=== PATIENT | male | born 1970 | race Caucasian/White ===

== ENCOUNTER → 2019-11-14 | Outpatient (CLI) | payer OTHER | LOC: COL.RAD 09:21 | DX: M48.07 Spinal stenosis, lumbosacral region (principal); M51.26 Other intervertebral disc displacement, lumbar region; Z98.1 Arthrodesis status ==

== ENCOUNTER → 2019-12-05 | Outpatient (CLI) | payer OTHER | LOC: MHCPAIN 13:40 | DX: M47.817 Spondylosis without myelopathy or radiculopathy, lumbosacral region (principal); M54.5 Low back pain; M53.3 Sacrococcygeal disorders, not elsewhere classified; G89.29 Other chronic pain; M96.1 Postlaminectomy syndrome, not elsewhere classified | CPT/HCPCS: G0463 ==

== ENCOUNTER 2020-07-22 12:20 | Day surgery (SDC) | payer OTHER ==
[~2020-07-22] VITALS: Ht 185.4 cm; Wt 100.6 kg
[2020-07-22 13:33] VITALS: BP 132/77; PULSE 65; TEMP 98.7
[2020-07-22] MEDS ORDERED: PERCOCET 325 MG1 TA2 PO (13:37)
[2020-07-22] MEDS ORDERED: NORCO 325 MG-51 TAB PO (13:37)
[2020-07-22] MEDS ORDERED: NAPROSYN500 MG PO (13:37)
--- NOTE | 2020-07-22 14:16 | NUR ---
Pt taken via cart to OR for scheduled surgery by ROBIN Cervantes.
[2020-07-22 15:30] VITALS: BP 130/76; PULSE 71; TEMP 97.5
--- NOTE | 2020-07-22 15:30 | NUR ---
Pt returned via cart to bay 1. Pt sitting up in bed. Already voided in urinal and had water whiel in PACU. Reports minimal pain and denied need for intervention. Pt SBA to bathroom upon return to pts room. Pt able to void and denied complaints. Given jello per request. Side rails up and patient watching TV with vitals monitor to obtain VS [id number].
[2020-07-22 15:45] VITALS: BP 136/86; PULSE 62
[2020-07-22 15:53] VITALS: TEMP 97.4
[2020-07-22 16:00] VITALS: BP 137/90; PULSE 68
[2020-07-22 16:15] VITALS: BP 139/79; PULSE 77
--- NOTE | 2020-07-22 16:21 | NUR ---
Pt tolerated water and jello. Denies pain or nausea. VS remain stable- see flowsheet. Pts IV removed, catheter tip intact and pressure dressing applied. Pt verbalized understanding of discharge teaching, packet reviewed with patient. Pt dressing into personal clothes and will be taken via wheelchair to private vehicle.
--- NOTE | 2020-07-22 16:33 | NUR ---
Pt taken via wheelchair to private vehicle with driving and 2 children with them. Pt sent home with dc packet including follow up appt card.
== END 2020-07-22 16:33 | disposition home or self-care (01) ==
LOC: SDCO 12:20
DX: C67.9 Malignant neoplasm of bladder, unspecified (principal); Z87.442 Personal history of urinary calculi; J44.9 Chronic obstructive pulmonary disease, unspecified; F17.210 Nicotine dependence, cigarettes, uncomplicated; G89.29 Other chronic pain; K21.9 Gastro-esophageal reflux disease without esophagitis
CPT/HCPCS: J0690; J1100; J2405; J2704; J3010; J7120; Q9967

== ENCOUNTER 2020-09-12 11:21 | Day surgery (SDC) | payer OTHER ==
[~2020-09-12] VITALS: Ht 185.4 cm; Wt 102.6 kg
[~2020-09-12 11:21] MED LIST: NAPROSYN500 MG PO; NORCO 325 MG-51 TAB PO; PERCOCET 325 MG1 TA2 PO
[2020-09-12 11:56] VITALS: BP 124/80; PULSE 78; TEMP 98.2
[2020-09-12] MEDS ORDERED: REFRESH PLUS 00.4 M1 OU (12:10)
[2020-09-12] MEDS ORDERED: ROBAXIN 75750 MG/TAB PO (12:11)
--- NOTE | 2020-09-12 12:12 | NUR ---
TO RM 1 AT 1130- CALL LIGHT IN REACH. WILL CALL FOR RIDE HOME
[2020-09-12 14:45] VITALS: BP 114/79; PULSE 65; TEMP 98.1
--- NOTE | 2020-09-12 14:45 | NUR ---
TO RM 1 PER CART FROM PACU. UPON RETURNING TO AMBULATED TO BATHROOM. VOIDED SMALL AMOUNT WITH 1 SMALL BLOOD CLOT. DENIES PAIN OR DISCOMFORT AT THIS TIME.
[2020-09-12 14:57] VITALS: TEMP 98.1
[2020-09-12 15:00] VITALS: BP 115/891; PULSE 77
--- NOTE | 2020-09-12 15:00 | NUR ---
ENCOURAGED TO TAKE COUGH AND DEEP BREATH. RECEIVED WATER,APPLE JUICE, APPLE SAUCE AND MUFFIN. SITTING UP AND WATCHING TV.
[2020-09-12 15:15] VITALS: BP 132/83; PULSE 68
--- NOTE | 2020-09-12 15:15 | NUR ---
ATE 100% AND TOLERATED WELL
[2020-09-12 15:30] VITALS: BP 111/67; PULSE 55
--- NOTE | 2020-09-12 15:30 | NUR ---
DRANK 2ND CUP OF WATER.
--- NOTE | 2020-09-12 16:05 | NUR ---
AMBULATED TO BATHROOM AND VOIDED 2ND SMALL AMOUNT AND NO CLOTS NOTED. RECEIVED DISCHARGE INSTRUCTIONS AND VERBALIZED UNDERSTANDING. DISCONTINUED IV AND INT- CATHETER INTACT PATIENT CALLED FOR RIDE HOME
--- NOTE | 2020-09-12 16:40 | NUR ---
DISCHARGED PER WC BY NURSING STAFF TO PRIVATE CAR IN CARE OF .
== END 2020-09-12 17:03 | disposition home or self-care (01) ==
LOC: SDCO 11:21
DX: C67.1 Malignant neoplasm of dome of bladder (principal); J44.9 Chronic obstructive pulmonary disease, unspecified; K21.9 Gastro-esophageal reflux disease without esophagitis; M54.9 Dorsalgia, unspecified; G89.29 Other chronic pain; F17.210 Nicotine dependence, cigarettes, uncomplicated; Z20.822 Contact with and (suspected) exposure to COVID-19; Z79.899 Other long term (current) drug therapy; Z87.442 Personal history of urinary calculi
CPT/HCPCS: J0690; J1100; J1885; J2405; J2704; J3010; J7120; Q9967